=== PATIENT | male | born 1960 ===

== ENCOUNTER 2025-01-31 12:00 | Outpatient (CLI) | payer MEDICARE, SELFPAY ==
[2025-01-31 12:20] LABS: Hematocrit 32.9 % (37-53); Hemoglobin 10.70 g/dL (11.27-16.99); Mean Corpuscular HGB Conc 32.5 g/dL (30-55); Mean Corpuscular Hemoglobin 34.7 pg (27-33); Mean Corpuscular Volume 106.8 fl (82-101); Nucleated Red Blood Cells % 0 %; Platelet Count 279 10^3/cmm (157-399); Red Blood Count 3.08 10^6/uL (3.85-5.65); White Blood Count 3.82 10^3/uL (3.29-11.43)
[2025-01-31 12:42] LABS: Alanine Aminotransferase 55 U/L (0-41); Albumin Level 4.2 g/dL (3.5-5.2); Alkaline Phosphatase 69 U/L (40-130); Anion Gap 21.4 (5-19); Aspartate Amino Transferase 100 U/L (0-40); Blood Urea Nitrogen 32 mg/dL (8-23); Calcium 9.8 mg/dL (8.5-10.5); Carbon Dioxide 28 mmol/L (22-29); Chloride 93 mmol/L (98-107); Globulin 2.9 g/dL (1.3-4.6); Glucose 108 mg/dL (65-115); Osmolality Calculated 293 mOsm/kg (285-295); Potassium 4.4 mmol/L (3.5-5.1); Sodium 138 mmol/L (136-145); Total Protein 7.1 g/dL (6.6-8.7)
== END 2025-01-31 12:01 | disposition home or self-care (01) ==
LOC: LAB 12:02
PROVIDERS: Family Provider Family Medicine; Visit Provider Nurse Practitioner Family
DX: E88.9 Metabolic disorder, unspecified (principal)
CPT/HCPCS: 80053; 85025

== ENCOUNTER 2025-02-05 16:27 | Outpatient (CLI) | payer MEDICARE, SELFPAY ==
[2025-02-05 16:38] LABS: Hematocrit 30.8 % (37-53); Hemoglobin 10.40 g/dL (11.27-16.99); Mean Corpuscular HGB Conc 33.8 g/dL (30-55); Mean Corpuscular Hemoglobin 35.1 pg (27-33); Mean Corpuscular Volume 104.1 fl (82-101); Nucleated Red Blood Cells % 0 %; Platelet Count 244 10^3/cmm (157-399); Red Blood Count 2.96 10^6/uL (3.85-5.65); White Blood Count 5.59 10^3/uL (3.29-11.43)
[2025-02-05 17:19] LABS: Alanine Aminotransferase 54 U/L (0-41); Albumin Level 3.9 g/dL (3.5-5.2); Alkaline Phosphatase 57 U/L (40-130); Anion Gap 19.8 (5-19); Aspartate Amino Transferase 80 U/L (0-40); Blood Urea Nitrogen 47 mg/dL (8-23); Calcium 10.0 mg/dL (8.5-10.5); Carbon Dioxide 30 mmol/L (22-29); Chloride 94 mmol/L (98-107); Globulin 3.1 g/dL (1.3-4.6); Glucose 87 mg/dL (65-115); Osmolality Calculated 300 mOsm/kg (285-295); Potassium 4.8 mmol/L (3.5-5.1); Sodium 139 mmol/L (136-145); Total Protein 7.0 g/dL (6.6-8.7)
== END 2025-02-05 16:28 | disposition home or self-care (01) ==
PROVIDERS: Family Provider Family Medicine; Visit Provider Nurse Practitioner Family
DX: Z13.228 Encounter for screening for other metabolic disorders (principal)
CPT/HCPCS: 80053; 85025